=== PATIENT | female | born 1950 ===

== ENCOUNTER 2019-02-19 05:00 | Day surgery (SDC) | payer OTHER ==
[~2019-02-19 05:00] MED LIST: ATACAND16 MG PO; LUMIGAN2.5 M1 OP; MOTRIN800 MG PO; OMEPRAZOLE MAGN20 MG PO; SIMBRINZA 1%-0.28 ML OP; SINGULAIR10 MG PO; SYNTHROID88 MCG PO; TRELEGY ELLIPT1 EACH IH
[2019-02-19] MEDS ORDERED: IBU600 MG PO (08:31)
== END 2019-02-19 14:10 | disposition home or self-care (01) ==
LOC: CIR.AMB 05:00
DX: N87.1 Moderate cervical dysplasia (principal)